=== PATIENT | male | born 1955 ===

== ENCOUNTER 2017-01-03 14:36 | Inpatient (IN) | payer MEDICARE ==
[~2017-01-03] VITALS: Ht 177.8 cm; Wt 74.6 kg
--- NOTE | ~2017-01-03 | PR ---
[place], [place] PROGRESS NOTE NAME: KLAUDIA GARCIA UNIT #: [id number] ROOM: 427 DOCTOR: PACO GALLAGHER DPM BIRTHDATE: [birth year] DOS: 01/06/2017 SUBJECTIVE: The patient is seen for postop day 1 of left foot. The patient is resting comfortably in bed without fever, chills or pain. OBJECTIVE: Upon removal of the dressing, the incision sites, plantar second left MPJ and dorsal left foot reveals no signs of purulent drainage or foul odor. The patient's WBC is down to 9.1. Wound culture reveals Staph aureus. No signs of proximal cellulitis. Negative Homans sign. No signs of DVT. No signs of complication. ASSESSMENT: Post-incision and drainage with bone biopsy, left foot. PLAN: A dry dressing was applied until the wound VAC can be applied. Ordered wound VAC to be changed every 3 days, applied to the dorsal and plantar left foot, set at 125 mmHg continuous. The patient will be seen on Sunday for followup with Dr. Fajardo and possible discharge. We will try and set up for wound VAC as soon as possible for home use. PACO GALLAGHER DPM CM:HARIKA [phone] PACO GALLAGHER DPM 01/10/17 0739 interface
--- NOTE | ~2017-01-03 | PR ---
[place], [place] PROGRESS NOTE NAME: KLAUDIA GARCIA UNIT #: [id number] ROOM: 427 DOCTOR: KLAUDIA MAYFIELD DPM BIRTHDATE: [birth year] DOS: 01/08/2017 SUBJECTIVE: This patient is seen postop day 3 of I and D, left foot. States he is feeling well. He has no fever, chills, nausea, vomiting or night sweats. OBJECTIVE: EXTREMITIES: Wound VAC is in place. Significant decrease in edema and erythema dorsally. No edema or erythema plantarly. Minimal drainage is noted at this time, wound culture revealed Staph aureus. Negative Homans sign is seen. ASSESSMENT: Status post incision and drainage, left foot with bone biopsies. PLAN: At this time is to get the patient home. It is okay from Podiatry standpoint to discharge. He will have a wound VAC at home. He will have oral antibiotics per Infectious Disease. He is to wear his Cam walker and be limited weightbearing on the left foot. He could follow up in the office on Sunday for evaluation. Call sooner if he has any other problems or concerns. KLAUDIA MAYFIELD DPM CM:HARIKA [phone] KLAUDIA MAYFIELD DPM 01/08/172139 interface
--- NOTE | ~2017-01-03 | PR ---
[place], [place] PROGRESS NOTE [id number] UN[facility] #: [id number] ROOM: 427 DOCTOR: PACO GALLAGHER DPM BIRTHDATE: [birth year] DOS: 01/04/2017 SUBJECTIVE: The patient presents after being admitted by Dr. Roberts yesterday. The patient states he feels much better today. He is not having fever or chills. OBJECTIVE: The patient's wound VAC is intact and functional, plantar aspect of the left foot. There are no signs of localized abscess to the area. Capillary refill time within normal limits. DIAGNOSTIC STUDIES: The patient had a CT scan performed of the left foot, which revealed postsurgical changes of the mid foot and medial column fusion. No acute fracture. No abscess seen. No appreciable abscess or apparent osteomyelitis. The patient's arterial vascular exam revealed no significant disease except for nonvisualization of the anterior tibial artery on the right. Left Doppler suggests possible significant disease in the distal popliteal, but 3 runoff vessels remain patent to the ankle. The patient's MRI is still pending. The patient's WBC has decreased to 16.1 today. ASSESSMENT: Diabetic foot infection, rule out osteomyelitis, chronic diabetic ulceration. PLAN: Evaluation and management. Continue antibiotics per Infectious Disease. Awaiting on results of the MRI. Discussed the case with Dr. Fajardo and Dr. Roberts. We will continue the wound VAC, possible bone biopsy if warranted depending on results of the MRI, which has not been done yet today. Dr. Fajardo will see the patient tomorrow. PACO GALLAGHER DPM CM:PNTRANS [id number] PACO GALLAGHER DPM 01/04/17 1228 interface
--- NOTE | ~2017-01-03 | O ---
[place], [place] OPERATIVE NOTE NAME: KLAUDIA GARCIA UNIT #: [id number] ROOM: 427 DOCTOR: KLAUDIA MAYFIELD DPM BIRTHDATE: [birth year] DOS: 01/05/2017 SURGEON: Klaudia Mayfield DPM PREOPERATIVE DIAGNOSIS: Infected diabetic ulcer with abscess and possible osteomyelitis, left foot. POSTOPERATIVE DIAGNOSIS: Infected diabetic ulcer with abscess and possible osteomyelitis, left foot. PROCEDURE: Incision and drainage of abscess, left forefoot with bone biopsy second metatarsal. ESTIMATED BLOOD LOSS: 5 mL. PATHOLOGY: Bone, left second metatarsal. ANESTHESIA: General MAC, injectable 10 mL of 0.5% Marcaine plain. COMPLICATIONS: None. DESCRIPTION OF PROCEDURE: After appropriate preoperative evaluation, patient brought in the OR and placed on the OR table in supine position. Anesthesia was then administered per anesthesia record. Next, a total of 10 mL of 0.5% Marcaine plain was injected proximal to the left second MPJ in a field block fashion. Once adequate anesthesia was obtained, the area was prepped and draped in usual sterile manner and left foot was lowered to the surgical field. Attention was directed to the plantar left second metatarsal head where there was noted to be an ulceration present. A Weikert elevator was used to probe the ulcer and that the wound did track distally towards the base of the second toe. This area was incised and there was encountered about 1 mL of purulence in the area. The ulcer then tracked dorsally at both the first and second intermetatarsal space more so the first intermetatarsal space. A Weikert was inserted towards the first intermetatarsal space and an incision was made dorsally in the dorsal to this area. There was found to be about 1-2 mL of purulence within the intermetatarsal space. Further probing of the wound was done and it did track to the second intermetatarsal space and a small incision was made dorsally there as well. No purulence was encountered in that area. The medial side of the second metatarsal head and periosteum was exposed. A Jamshidi needle was used to obtain a bone biopsy of the left second metatarsal head. Bone cultures were then done and will be sent for Gram stain culture and sensitivity, both aerobic and anaerobic. The area was then flushed with using a pulse supervisor gelatin plant with 3 liters of normal saline. Half inch plain Nu Gauze packing was applied to the wounds followed by 4 x 4s, ABD and Kerlix and Jemal wrap. Vascular status was intact to the foot throughout the procedure. The patient tolerated the procedure and anesthesia well and left the OR with vital signs stable and intact and transported to the recovery room. The patient will be followed up tomorrow, possibly resume wound VAC tomorrow. For now, we will leave the packing in until the morning. will see him tomorrow. [place], [place] OPERATIVE NOTE NAME: KLAUDIA GARCIA UNIT #: [id number] ROOM: 427 DOCTOR: KLAUDIA MAYFIELD DPM BIRTHDATE: [birth year] KLAUDIA MAYFIELD DPM CM:OPRECORD:OPERATIVE NOTE [phone] KLAUDIA MAYFIELD DPM 01/05/172000 interface
--- NOTE | ~2017-01-03 | CON ---
[place], [place] REPORT OF CONSULTATION NAME: [id number] UNIT #: [id number] ROOM: 427 DOCTOR: MELLY TYSON DPM BIRTHDATE: [birth year] DOS: 01/03/2017 The patient is a 61-year-old white male who is seeing me for bilateral Charcot foot deformities. I operated on him approximately 5-6 years ago. Subsequently, he was seen in our office today by one of my associates and diagnosed with diabetic foot ulcer with a possible abscess. He was admitted to [facility] and his white count is 20.5. He has a red, hot, swollen foot with a secondary diabetic ulcer sub-second metatarsal of his left foot. Today, he was seen at bedside. He has a white circular around the plantar aspect of the left foot. His vascular status appears to be intact, but slightly diminished on the left side, appears to be intact on the right. He had noninvasive vascular studies done, demonstrate he has a 3-vessel runoff; however, he does have a component of peripheral vascular disease on his left. He denies any chills, fever, shortness of breath, chest pain, leg pain at this moment. PAST MEDICAL HISTORY: In the chart; I do not have access to it right now. PHYSICAL EXAMINATION: Lower extremities: VASCULAR: He has got Doppler waveforms of the right that suggests no significant disease except for the nonvisualization of the anterior tibial artery. On the left, Doppler waveforms suggest possibly significant disease distal to the popliteal artery, but 3 runoff vessels remain patent to the ankle. He had a CT scan done and there are postsurgical changes from reconstruction. No acute fractures or hardware complications seen. However, I looked at his x-rays and there is some fractured hardware, but it appears to be stable in place. There is some prominent dorsal foot soft tissue swelling which may represent underlying cellulitis, but there is no abscess seen. On the CT, mild MTP plantar ulceration without underlying erosive changes or appreciable abscess, moderate hindfoot degenerative changes. NEUROLOGICAL: He has a lack of protective sensation secondary to his diabetes mellitus. MUSCULOSKELETAL: He has a mildly tight posterior muscle group. DERMATOLOGIC: He has an open wound approximately 1 cm diameter that is white, circular full thickness ulceration, travels deep to the deep capsular tissue. ORTHOPEDIC: Always concerned of osteomyelitis, but I do not believe he has osteomyelitis based on his x-rays and clinical exam at this time. ASSESSMENT: Abscess, infection of sub-second metatarsal, beginnings of a deep space infection possibly. PLAN: Waiting for MRI results tomorrow. In the meantime, we will order a wound VAC to his room and we will set it at 200 continuously. Deep aerobic, anaerobic, fungal and acid fast cultures will be taken. In the meantime, Infectious Disease started antibiotics on him and I will have my partner see him tomorrow. We will follow up accordingly. [place], [place] REPORT OF CONSULTATION NAME: KLAUDIA GARCIA UNIT #: [id number] ROOM: 427 DOCTOR: MELLY TYSON DPM BIRTHDATE: [birth year] MELLY TYSON DPM CM:CONSTR:REPORT OF CONSULTATION 20 01/04/17 0114 interface
--- NOTE | ~2017-01-03 | PR ---
[place], [place] PROGRESS NOTE [id number] UNIT #: [id number] ROOM: 427 DOCTOR: KLAUDIA MAYFIELD DPM BIRTHDATE: [birth year] DOS: 01/05/2017 SUBJECTIVE: This patient is seen for followup of his left foot. He states he is feeling better. He is not having any chills or fever, does not have any sweats. He had an MRI done that showed abscess in the left forefoot. OBJECTIVE: The wound VAC is removed. Neurovascular status is unchanged. There is neuropathy present. Arterial status is intact. Plantar left second metatarsal head has an ulceration present that probes down into and through subcutaneous tissue. Just distal to this, there is some erythema and some fluctuance noted. There is some drainage noted to the area. Mild edema dorsal forefoot with some erythema, but no fluctuance dorsally. Again his MRI showed an area of abscess measuring approximately 1.1 x 3.1 cm in the area around the plantar ulceration of the left forefoot. There was no evidence of osteomyelitis. ASSESSMENT: Diabetes with ulceration and abscess, left forefoot. EVALUATION AND MANAGEMENT: I discussed with the patient that there is an abscess in the left forefoot. He will need incision and drainage of the abscess today. He has been n.p.o. since 9:00 a.m. He is scheduled to have surgery at 3:00. I discussed the procedure with the patient as well as possible complications. I will pack the area after the surgery, may possibly reapply the wound VAC tomorrow. Consent will be done for incision and drainage of abscess and debridement of ulcer, left foot. The patient was given the opportunity to ask questions, all questions were answered. He will go to surgery later this afternoon and he will be followed up tomorrow. KLAUDIA MAYFIELD DPM CM:HARIKA 02 30 KLAUDIA MAYFIELD DPM 01/05/172231 interface
[2017-01-03 14:45] VITALS: BP 177/79
[2017-01-03 14:55] VITALS: BP 142/87
[2017-01-03 15:29] LABS: HEMATOCRIT 43.9 % (42.0-52.0); HEMOGLOBIN 15.1 g/dl (14.0-18.0); MEAN CELL VOLUME 86.4 fl (80.0-94.0); MEAN CORPUSCULAR HGB 29.7 pg (27.0-31.0); MEAN CORPUSCULAR HGB CONC 34.4 g/dl (33.0-37.0); MEAN PLATELET VOLUME 9.8 fl (9.6-12.3); PLATELET COUNT AUTOMATED 172 10*3/uL (130-400); RED BLOOD COUNT 5.08 10*6/uL (4.50-5.90); RED CELL DISTRI WIDTH 13.3 % (0-14.5); WHITE BLOOD COUNT 20.5 10*3/uL (4.8-10.8)
--- NOTE | 2017-01-03 15:41 | NUR ---
LA 3.2 Lady HANNAH NOTIFIED.
[2017-01-03 15:44] VITALS: BP 153/80
[2017-01-03 15:47] LABS: ALBUMIN 3.6 gm/dl (3.1-4.5); ALKALINE PHOSPHATASE 88 U/L (45-117); BUN 19 mg/dl (7-24); CHLORIDE 102 mmol/L (98-107); CREATININE 0.95 mg/dL (0.70-1.30); SGOT/AST 16 IU/L (3-35); SGPT/ALT 24 U/L (12-78); SODIUM 136 mmol/L (136-145); TOTAL PROTEIN 6.9 gm/dL (6.4-8.2)
[2017-01-03 15:48] LABS: ATYPICAL LYMPHS 5 % (0-0); PLATELET SUFFICIENCY NORMAL (NORMAL); TOTAL CELLS COUNTED 100 #CELLS
--- NOTE | 2017-01-03 16:59 | NUR ---
DR. HILL AND DR. TYSON NOTIFIED OF CONSULTS.
--- NOTE | 2017-01-03 17:33 | NUR ---
RADHA KAUFFMAN AT BEDSIDE WITH PATIENT AT THIS TIME.
--- NOTE | 2017-01-03 17:36 | NUR ---
PATIENT LEFT FOOT HAS BEEN WRAPPED FOR TRANSPORT. RADHA KAUFFMAN NOTIFIED.
--- NOTE | 2017-01-03 18:12 | NUR ---
MSADMTime: N A 61 year old MALE admitted to 4E under services of MON[place]NA SERRANO DO, Pt. arrived via from ER. Chief complaint: DIABETIC FOOT ULCER. RADHA BELCHER
[2017-01-03] MEDS ORDERED: GLUCOPHAGE1000 MG PO (18:30)
[2017-01-03] MEDS ORDERED: SIMVASTATIN20 MG PO (18:31)
[2017-01-03] MEDS ORDERED: CALAN120 M1 PO (18:31)
[2017-01-03] MEDS ORDERED: LISINOPRIL5 MG PO (18:31)
[2017-01-03] MEDS ORDERED: ASPIRIN CHEWABL81 MG PO (18:32)
[2017-01-03] MEDS ORDERED: GLYBURIDE5 MG PO (18:32)
[2017-01-03] MEDS ORDERED: LEVEMIR100 UNIT/1 SC (18:38)
[2017-01-03] MEDS ORDERED: AMBIEN10 M1 PO (18:39)
[2017-01-03 21:01] VITALS: BP 133/71
--- NOTE | 2017-01-03 22:02 | NUR ---
2ND GRAM OF VANC GIVEN. UNABLE TO DOCUMENT ON APR.
--- NOTE | 2017-01-03 23:10 | NUR ---
WOUND VAC APPLIED CHACORTA RASHID
--- NOTE | 2017-01-03 23:29 | NUR ---
PATIENT MEDICATED WITH AMBIEN PER PRN ORDER FOR C/O INABILITY TO SLEEP. SEE EMAR. REINFORCED USE OF CALL LIGHT,
[2017-01-04] VITALS: BP 135/72
--- NOTE | 2017-01-04 01:00 | NUR ---
PATIENT APPEARS TO BE SLEEPING. MEDICATION EFFECTIVE.
[2017-01-04 06:37] LABS: HEMOGLOBIN 13.9 g/dl (14.0-18.0); MEAN CORPUSCULAR HGB 29.5 pg (27.0-31.0); MEAN CORPUSCULAR HGB CONC 33.9 g/dl (33.0-37.0); MEAN PLATELET VOLUME 9.9 fl (9.6-12.3); PLATELET COUNT AUTOMATED 146 10*3/uL (130-400); RED BLOOD COUNT 4.71 10*6/uL (4.50-5.90); RED CELL DISTRI WIDTH 13.2 % (0-14.5); WHITE BLOOD COUNT 16.1 10*3/uL (4.8-10.8)
[2017-01-04 07:07] LABS: ALBUMIN 3.1 gm/dl (3.1-4.5); ALKALINE PHOSPHATASE 74 U/L (45-117); BUN 12 mg/dl (7-24); CHLORIDE 107 mmol/L (98-107); CHOLESTEROL 103 mg/dL (<200); FREE T4 1.31 ng/dl (0.76-1.46); HDL CHOLESTEROL 44 mg/dl (40-60); LDL CHOLESTEROL 48 mg/dL (9-159); PHOSPHOROUS 2.6 mg/dL (2.5-4.9); POTASSIUM 3.3 mmol/L (3.5-5.1); SGOT/AST 19 IU/L (3-35); SGPT/ALT 24 U/L (12-78); SODIUM 141 mmol/L (136-145); TOTAL PROTEIN 6.2 gm/dL (6.4-8.2); TRIGLYCERIDES 55 mg/dl (<150); VLDL CHOLESTEROL 11 mg/dL (6-40)
[2017-01-04 07:16] LABS: INTERNATIONAL NORM RATIO 1.1 (2.0-3.5)
[2017-01-04 07:38] LABS: PLATELET SUFFICIENCY NORMAL (NORMAL); TOTAL CELLS COUNTED 100 #CELLS
--- NOTE | 2017-01-04 07:45 | NUR ---
RAPID FLU SPECIMEN SENT TO LAB [facility]
--- NOTE | 2017-01-04 07:55 | NUR ---
Alert and oriented x3. Eating breakfast. Denies pain at this time. Wound vac intact to left foot. IVF infusing per orders. Lungs clear throughout. Abdomen soft normoactive x4. BM yesterday per pt. See assessment.
[2017-01-04 08:00] VITALS: BP 130/80
--- NOTE | 2017-01-04 08:00 | NUR ---
PATIENT IS PLEASANT AND COOPERATIVE SITTING UP IN BED [facility]
--- NOTE | 2017-01-04 08:53 | NUR ---
This nurse went into patient's room to evaluate left foot. Patient stated that this wound started about 5 weeks ago and follow with Dr. Garcia with podiatry for a DFU. Patient has a wound vac in place at 200 mmHg continous. Periwound red in color. Spoke with Jai to inform her that when podiatry rounds that the orders for the wound vac need clarified and if she can get them clarified she stated yes. Patient stated that he has been following with Dr. Garcia for several years regarding other issue that he has had previously.
--- NOTE | 2017-01-04 09:00 | NUR ---
[employer] Analyst in to talk to patient. Patient states lives at [facility] with . There are few steps in the home. Physician: out of state doctor Pharmacy: out of state Home health services: none Patient's level of ADLs: INDEPENDENT Patient has working utilities: all working DME: none Follow-up physician's appointment after d/c: will be made by hospitalist nurse director upon discharge Does patient want to access PORTAL?: no Discharge plan discussed with patient, patient states he lives at home with his , states he lives in [facility] and was here at the doctors appointment when the doctor sent him to the Ed. Discussed with him a discharge plan including giving himself iv antibiotics if needed, or a short term jail, patient stated he didn't want to go to a SNF and that he felt he could do the iv at home if needed. case management will follow and set up any needs patient may have. RAISA BARKER
[2017-01-04 09:03] LABS: VITAMIN D, 25-HYDROXY 24.7 ng/mL (30-100)
--- NOTE | 2017-01-04 10:00 | NUR ---
LEFT FOOT WARM TO TOUCH, PULSES FAINT BUT OBTAINED WITH DOPPLER, FOOT EDEMATOUS SO HAS SLIGHTLY PROLONGED CAP REFILL [facility] MUR[facility] SPNRCC
--- NOTE | 2017-01-04 10:32 | NUR ---
PATIENT AWAKE AND ORIENTED WITH NO COMPLAINTS AT THIS TIME HARLAN MURPHY SPALLYSONCC
[2017-01-04 12:00] VITALS: BP 106/68
--- NOTE | 2017-01-04 13:04 | NUR ---
STOOL FOR OCCULT BLOOD SENT TO LAB [facility]
--- NOTE | 2017-01-04 15:19 | NUR ---
Nutritional Support Services Note: Discussing with pt 1800cal diabetic diet. Pt states his is a diabetic also and they attempt to follow diet but do not do very well with it. He has been a diabetic for 15 years. Has some weight loss the last year or so. He goes for long periods without eating. Encouraged three meals daily and a night snack. Encouraged increased protein to promote healing. Will follow as needed. Meryl Mcfarland
[2017-01-04 16:00] VITALS: BP 106/66
--- NOTE | 2017-01-04 16:28 | NUR ---
Pt taken of monitor, ivf disconnected and wound vac machine disconnected from pt and clamped for transport to MRI.
--- NOTE | 2017-01-04 17:40 | NUR ---
Pt returned from having MRI, assembler latches and springs reapplied, ivf resumed, and wound vac tubing reattached to wound vac at 125 mm hg suction per order.
[2017-01-04 20:00] VITALS: BP 118/66
[2017-01-04 21:05] VITALS: BP 129/47
[2017-01-05] VITALS (9 sets, daily range): BP systolic 119–158; BP diastolic 55–81
[2017-01-05 06:09] LABS: BASO % 0.2 % (0.0-1.0); EOS # 0.3 10*3/uL (0.0-0.4); EOS % 1.9 % (1.0-4.0); HEMATOCRIT 40.4 % (42.0-52.0); HEMOGLOBIN 13.5 g/dl (14.0-18.0); LYMPH # 1.7 10*3/uL (1.3-4.4); MEAN CELL VOLUME 86.5 fl (80.0-94.0); MEAN CORPUSCULAR HGB 28.9 pg (27.0-31.0); MEAN CORPUSCULAR HGB CONC 33.4 g/dl (33.0-37.0); MEAN PLATELET VOLUME 9.8 fl (9.6-12.3); MONO # 1.1 10*3/uL (0.1-1.0); MONO % 7.9 % (3.0-9.0); NEUT # 10.2 10*3/uL (2.3-7.9); NEUT % 76.6 % (47.0-73.0); PLATELET COUNT AUTOMATED 150 10*3/uL (130-400); RED BLOOD COUNT 4.67 10*6/uL (4.50-5.90); RED CELL DISTRI WIDTH 13.1 % (0-14.5); WHITE BLOOD COUNT 13.3 10*3/uL (4.8-10.8)
[2017-01-05 06:13] LABS: BUN 10 mg/dl (7-24); CHLORIDE 106 mmol/L (98-107); POTASSIUM 3.3 mmol/L (3.5-5.1); SODIUM 140 mmol/L (136-145)
[2017-01-05 06:15] LABS: VANCOMYCIN TROUGH 12.6 ug/mL (10-20)
--- NOTE | 2017-01-05 09:00 | NUR ---
case management visits with patient, patient states he may be having surgery today, again discussed a discharge plan and VNA and patient stated that he didn't feel he needed any at this time, case managment will follow
--- NOTE | 2017-01-05 12:09 | NUR ---
SPOKE WITH WITH DR. RICARDO Cowan FOR PATIENT TO BE NPO FOR PROBABLE SURGERY
--- NOTE | 2017-01-05 14:21 | NUR ---
PATEINT TO SURGERY
[2017-01-05] MEDS ORDERED: CEPHALEXIN500 M1 PO (16:37)
[2017-01-05] MEDS ORDERED: DOXYCYCLINE100 M3 PO (16:37)
--- NOTE | 2017-01-05 21:30 | NUR ---
PATIENT MEDICATED WITH NORCO PER PRN ORDER FOR C/O LEFT FOOT PAIN. RATED PAIN A 5-6/10 WITH 10 BEING THE WORST. SEE EMAR. REINFORCED USE OF CALL LIGHT.
--- NOTE | 2017-01-05 23:24 | NUR ---
DR. SHOOK NOTIFIED OF THE FREQUENT PVC ON MONITOR STRIP.
--- NOTE | 2017-01-05 23:50 | NUR ---
DR. MUNOZ AND DR MUNIZ TO FLOOR. REVIEWED MONITOR STRIP. ORDERS RECEIVED
[2017-01-06] VITALS: BP 117/67
--- NOTE | 2017-01-06 01:35 | NUR ---
PATIENT MEDICATED WITH NORCO FOR C/O L. FOOT PAIN. RATED PAIN A 4/10 WITH 10 BEING THE WORST. SEE EMAR. REINFORCED USE OF CALL LIGHT.
[2017-01-06 06:21] LABS: BASO # 0.1 10*3/uL (0.0-0.1); BASO % 0.5 % (0.0-1.0); EOS # 0.3 10*3/uL (0.0-0.4); EOS % 3.2 % (1.0-4.0); HEMATOCRIT 38.3 % (42.0-52.0); HEMOGLOBIN 13.1 g/dl (14.0-18.0); LYMPH # 1.7 10*3/uL (1.3-4.4); LYMPH % 18.6 % (27.0-41.0); MEAN CELL VOLUME 86.1 fl (80.0-94.0); MEAN CORPUSCULAR HGB 29.4 pg (27.0-31.0); MEAN CORPUSCULAR HGB CONC 34.2 g/dl (33.0-37.0); MONO % 10.5 % (3.0-9.0); NEUT # 6.1 10*3/uL (2.3-7.9); NEUT % 66.8 % (47.0-73.0); PLATELET COUNT AUTOMATED 167 10*3/uL (130-400); RED BLOOD COUNT 4.45 10*6/uL (4.50-5.90); RED CELL DISTRI WIDTH 13.1 % (0-14.5); WHITE BLOOD COUNT 9.1 10*3/uL (4.8-10.8)
[2017-01-06 06:51] LABS: BUN 9 mg/dl (7-24); CHLORIDE 107 mmol/L (98-107); CREATININE 0.67 mg/dL (0.70-1.30); PHOSPHOROUS 3.6 mg/dL (2.5-4.9); POTASSIUM 3.9 mmol/L (3.5-5.1); SODIUM 141 mmol/L (136-145)
[2017-01-06 08:00] VITALS: BP 150/88
[2017-01-06 11:50] VITALS: BP 127/77
--- NOTE | 2017-01-06 12:00 | NUR ---
ASSESSMENT COMPLETE. PT HAS DRESSING TO LEFT FOOT, PHYSICIAN CHANGED ORIGINAL SURGICAL DRESSING AND APPLIED NEW DRY DRESSING. ORDER FOR WOUND VAC TO BE PLACED. WILL PLACE ON PATIENT WHEN RN THAT HAS WOUND VAC EXPERIENCE IS ABLE TO ASSIST PLACEMENT. PT AWARE OF PLAN. PT HAS NO COMPLANTS OF PAIN AT THIS TIME.
--- NOTE | 2017-01-06 15:37 | NUR ---
WOUND VAC PLACED ON LEFT FOOT DORSAL AND PLANTAR SURFACES. WOUND VAC PLACED WITH ASSISTANCE FROM CAROLYN WHITLEY RN. SUCTION AT 125CMHG. WOUND PICTURES TAKEN. SEE WOUND SCREEN
[2017-01-06 16:00] VITALS: BP 141/80
[2017-01-06 20:00] VITALS: BP 147/72
[2017-01-07] VITALS: BP 123/66
--- NOTE | 2017-01-07 00:58 | NUR ---
AMBIEN GIVEN AT 0056 PER PATIENT REQUEST TO HELP HIM SLEEP, GIVEN PER PRN ORDER.
--- NOTE | 2017-01-07 02:00 | NUR ---
PATIENT LYING IN BED WITH EYES CLOSED, APPEARS TO BE SLEEPING.
--- NOTE | 2017-01-07 02:26 | NUR ---
PATIENT WITH WOUND VAC INTACT ON LEFT FOOT. TOLERATED WELL. DRESSING HAD TO BE FIXED SEVERAL TIMES. PATIENT UP WALKING TO THE BATHROOM.
--- NOTE | 2017-01-07 04:28 | NUR ---
24 HR chart check completed.
[2017-01-07 06:02] LABS: BASO % 0.3 % (0.0-1.0); EOS # 0.4 10*3/uL (0.0-0.4); EOS % 4.8 % (1.0-4.0); HEMATOCRIT 38.9 % (42.0-52.0); LYMPH # 1.6 10*3/uL (1.3-4.4); LYMPH % 21.8 % (27.0-41.0); MEAN CELL VOLUME 86.3 fl (80.0-94.0); MEAN CORPUSCULAR HGB 28.8 pg (27.0-31.0); MEAN CORPUSCULAR HGB CONC 33.4 g/dl (33.0-37.0); MONO # 0.8 10*3/uL (0.1-1.0); MONO % 11.5 % (3.0-9.0); NEUT # 4.5 10*3/uL (2.3-7.9); NEUT % 61.3 % (47.0-73.0); PLATELET COUNT AUTOMATED 175 10*3/uL (130-400); RED BLOOD COUNT 4.51 10*6/uL (4.50-5.90); WHITE BLOOD COUNT 7.3 10*3/uL (4.8-10.8)
[2017-01-07 06:12] LABS: BUN 10 mg/dl (7-24); CHLORIDE 108 mmol/L (98-107); CREATININE 0.65 mg/dL (0.70-1.30); POTASSIUM 4.3 mmol/L (3.5-5.1); SODIUM 144 mmol/L (136-145)
[2017-01-07 06:21] LABS: VANCOMYCIN TROUGH 24.9 ug/mL (10-20)
--- NOTE | 2017-01-07 07:58 | NUR ---
DR. PIZARRO WAS NOTIFIED OF CRITICAL VANCOMYCIN TROUGH AT 24.9.
[2017-01-07 08:00] VITALS: BP 137/67
[2017-01-07 12:00] VITALS: BP 134/77
[2017-01-07 16:00] VITALS: BP 157/82
[2017-01-07 20:00] VITALS: BP 161/79
--- NOTE | 2017-01-07 22:55 | NUR ---
PATIENT REQUESTED AMBIEN TO HELP HIM SLEEP. AMBIEN GIVEN PER PRN ORDER.
--- NOTE | 2017-01-07 23:00 | NUR ---
PATIENT LYING IN BED ASLEEP. AMBIEN APPEARS TO BE EFFECTIVE.
[2017-01-08] VITALS: BP 143/64
[2017-01-08 07:28] LABS: BASO % 0.5 % (0.0-1.0); EOS # 0.3 10*3/uL (0.0-0.4); EOS % 3.8 % (1.0-4.0); HEMATOCRIT 40.5 % (42.0-52.0); HEMOGLOBIN 13.7 g/dl (14.0-18.0); LYMPH # 1.5 10*3/uL (1.3-4.4); LYMPH % 18.1 % (27.0-41.0); MEAN CELL VOLUME 85.8 fl (80.0-94.0); MEAN CORPUSCULAR HGB CONC 33.8 g/dl (33.0-37.0); MEAN PLATELET VOLUME 10.1 fl (9.6-12.3); MONO # 0.7 10*3/uL (0.1-1.0); MONO % 8.9 % (3.0-9.0); NEUT # 5.7 10*3/uL (2.3-7.9); NEUT % 68.3 % (47.0-73.0); PLATELET COUNT AUTOMATED 201 10*3/uL (130-400); RED BLOOD COUNT 4.72 10*6/uL (4.50-5.90); RED CELL DISTRI WIDTH 12.8 % (0-14.5); WHITE BLOOD COUNT 8.3 10*3/uL (4.8-10.8)
[2017-01-08 07:41] LABS: BUN 12 mg/dl (7-24); CHLORIDE 106 mmol/L (98-107); CREATININE 0.72 mg/dL (0.70-1.30); POTASSIUM 3.9 mmol/L (3.5-5.1); SODIUM 142 mmol/L (136-145)
[2017-01-08 08:00] VITALS: BP 155/79
--- NOTE | 2017-01-08 09:00 | NUR ---
case management visits with patient, again discussed with him a discharge plan, patient stated that he would be going home on oral antibiotics and a wound vac, per chart, podiatry is working on the wound vac, discussed with patient NORRIS and he was receptive to this, patient stated he didn't care what company he had. 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
[2017-01-08 12:00] VITALS: BP 139/72
--- NOTE | 2017-01-08 12:06 | NUR ---
DR. MAYFIELD HAS CLEARED THE PATIENT FOR DC. THE DR. UGALDE STATE THAT THE PATIENT WILL NEED A WOUND VAC FOR HOME AND TO FOLLOW UP WITH [facility] ON SUNDAY.
[2017-01-08] MEDS ORDERED: LISINOPRIL10 M1 PO (12:56)
--- NOTE | 2017-01-08 13:08 | NUR ---
Received order for home health, patient from [facility] , referral faxed to [facility] home health.
--- NOTE | 2017-01-08 14:30 | NUR ---
PATIENT GOING HOME WITH WET TO DRY DRESSING PER DR. MAYFIELD UNTIL HE RECIEVES IS WOUND VAC FROM DR. MAYFIELD'S OFFICE. WOUND PICTURES WERE TAKEN. NO COMPLAINTS FROM THE PATIENT. NO CONCERNS AT THIS TIME.
--- NOTE | 2017-01-08 14:42 | NUR ---
Notified [facility] home health patient is being discharged to home today and faxed discharge information.
--- NOTE | 2017-01-08 14:52 | NUR ---
Discharge instructions reviewed with patient/family. Patient receptive and verbalizes understanding. Follow-up care arranged. Written instructions given to patient/family. ROYER GASTELUM
== END 2017-01-08 14:52 | disposition home health service (06) | DRG 854 ==
LOC: ED 14:36 → 4E 16:14 → EDHOLD 16:14 → 5E 16:37 → 4E 16:42
PROVIDERS: Hospitalist; Nurse Practitioner Family; Podiatrist; ADMIT Internal Medicine
PROC: 0QBP0ZX Excision of Left Metatarsal, Open Approach, Diagnostic (ICD-10-PCS; principal; 2017-01-05)
PROC: 0Y9N0ZX Drainage of Left Foot, Open Approach, Diagnostic (ICD-10-PCS; 2017-01-05)
DX: A41.9 Sepsis, unspecified organism (principal); M86.8X7 Other osteomyelitis, ankle and foot; E11.621 Type 2 diabetes mellitus with foot ulcer; L02.612 Cutaneous abscess of left foot; R65.20 Severe sepsis without septic shock; L97.529 Non-pressure chronic ulcer of other part of left foot with unspecified severity; R00.0 Tachycardia, unspecified; E11.65 Type 2 diabetes mellitus with hyperglycemia; Z79.4 Long term (current) use of insulin; I10 Essential (primary) hypertension; E80.6 Other disorders of bilirubin metabolism; E87.6 Hypokalemia; E66.01 Morbid (severe) obesity due to excess calories; E11.69 Type 2 diabetes mellitus with other specified complication; F17.290 Nicotine dependence, other tobacco product, uncomplicated; Z71.6 Tobacco abuse counseling; Z86.14 Personal history of Methicillin resistant Staphylococcus aureus infection; Z79.899 Other long term (current) drug therapy; Z80.8 Family history of malignant neoplasm of other organs or systems; Z68.23 Body mass index [BMI] 23.0-23.9, adult

== ENCOUNTER 2017-04-13 11:39 | Inpatient (IN) | payer MEDICARE ==
[2017-04-13] VITALS (8 sets, daily range): BP systolic 109–132; BP diastolic 67–83
[~2017-04-13] VITALS: Ht 185.4 cm; Wt 101.2 kg
--- NOTE | ~2017-04-13 | PR ---
[place], [place] PROGRESS NOTE NAME: KLAUDIA GARCIA UNIT #: [id number] ROOM: 512 DOCTOR: KLAUDIA MAYFIELD DPM BIRTHDATE: [birth year] DOS: 04/16/2017 SUBJECTIVE: This patient is seen 3 days status post amputation of left second toe and debridement of wound, left foot. He states he is feeling well. He had a wound VAC placed yesterday. He states he feels better than prior to admission when he was having chills and fever. He has had none of the symptoms at this point. OBJECTIVE: Neurovascular status unchanged to neuropathy noted. The wound VAC is in place on the left foot. There is some mild drainage in the canister. There is no significant erythema noted dorsally. The patient is neuropathic, so as no pain. Overall, appears to be progressing well at this time. ASSESSMENT: Status post amputation, left second toe bone debridement, left foot. PLAN: Continue with the wound VAC for now. I discussed with the patient as well as nurse that it is okay from our standpoint for him to be discharged. If he gets a PICC line tomorrow and goes home, they could just pack the wound with a dry dressing and he could follow up in our office on Sunday for application of a wound VAC. I will discuss with my office this treatment plan. If he is still here on Sunday, we will see him, but if not, he is okay for discharge from our standpoint once okay with Internal Medicine and ID. KLAUDIA MAYFIELD DPM CM:PNTRANS [phone] KLAUDIA MAYFIELD DPM 04/16/17 7371 interface
--- NOTE | ~2017-04-13 | PR ---
[place], [place] PROGRESS NOTE [id number] UN[facility] #: [id number] ROOM: 512 DOCTOR: PACO GALLAGHER DPM BIRTHDATE: [birth year] DOS: 04/14/2017 SUBJECTIVE: The patient presents postop day 1 of bone debridement and biopsy of second metatarsal, incision and drainage with amputation of the second left toe. The patient is resting comfortably in bed without discomfort. OBJECTIVE: Upon removal of the dressing and packing, there are no signs of purulent drainage or foul odor. No further signs of abscess, no necrotic tissue evident. Appears to be healing well at this time postoperatively. ASSESSMENT: Postop amputation of second left toe, incision and drainage with bone biopsy. PLAN: Change the patient's dressing and packing. Half inch plain packing with wet to dry dressing was applied. Dr. Nicole will see the patient tomorrow and antibiotics per Infectious Disease. PACO GALLAGHER DPM CM:PNTRANS [phone] PACO GALLAGHER DPM 04/14/17 1233 interface
--- NOTE | ~2017-04-13 | O ---
[place], [place] OPERATIVE NOTE NAME: KLAUDIA GARCIA UNIT #: [id number] ROOM: 512 DOCTOR: NII NICOLE DPM BIRTHDATE: [birth year] DOS: 04/13/2017 HISTORY AND PHYSICAL: VASCULAR: DP and PT pulses palpable, +1/4 to bilateral feet. Capillary refill time less than 5 seconds to the digits of bilateral feet. Skin temperature, warm to warm from proximal to distal to bilateral lower extremities. NEUROVASCULAR: Protective sensation is diminished to the level of the heel as tested with 5.07 [place]ri[place] monofilament wires to bilateral feet. DERMATOLOGICAL: Ulceration noted to the left forefoot measuring approximately 1 cm x 1.5 cm x 0.5 cm deep. Wound base is fibrotic. The wound does probe to bone. Serosanguineous drainage is noted. No malodor is noted. MUSCULOSKELETAL: Ankle joint range of motion noted to be reduced in dorsiflexion with the knee extended to bilateral lower extremities. Gastrocnemius equinus is noted to bilateral lower extremities. SURGEON: Nii Nicole DPM ASSISTANTS: None. PREOPERATIVE DIAGNOSES: 1. Osteomyelitis of left second digit and left foot. 2. Soft tissue emphysema and infection with abscess, left foot. POSTOPERATIVE DIAGNOSES: 1. Osteomyelitis of left second digit and left foot. 2. Soft tissue emphysema and infection with abscess, left foot. PROCEDURE: 1. Bone debridement and biopsy of second metatarsal, left foot. 2. Incision and drainage of soft tissue infection and abscess, left foot. 3. Amputation of left second digit. ANESTHESIA: Local with IV sedation. HEMOSTASIS: None. ESTIMATED BLOOD LOSS: 10 mL. MATERIALS: None. IMPLANTS: None. COMPLICATIONS: None. DESCRIPTION OF PROCEDURE: The patient was admitted to the hospital from the Emergency Department for a left foot infection. The patient was met at the hospital room where consent was obtained. I discussed the possible risks and [place], [place] OPERATIVE NOTE NAME: KLAUDIA GARCIA Jose UNIT #: [id number] ROOM: 512 DOCTOR: NII NICOLE DPM BIRTHDATE: [birth year] benefits of surgery in detail with the patient and his family. All questions were answered. No guarantees were given. The patient was then brought to the preoperative holding area. The patient was taken from the preoperative holding area to the operating room and placed on the operating table in the supine position. IV anesthesia was administered per the anesthesiologist. Next, the left lower extremity was prepped and draped in the usual sterile fashion. At this time, attention was directed to the left foot where there was noted to be a plantar forefoot ulcer as per the note above. The wound was noted to track distally and there was noted to be serosanguineous drainage. Next, using a #15 blade, an incision was made along the distal aspect of the ulceration towards the digit. At this time, there was noted to be probing to the proximal phalanx of the second digit. Upon exam, there was noted to be soft bone and drainage noted along the proximal and distal phalanges of the second digit. The bone had an abnormal appearance and appeared necrotic. At this time, using a 15 blade, a circumferential incision was made overlying the second PIPJ. The digit was then amputated, removed from the field and passed to the back table to be sent for pathology. At this time, the tissue around the second metatarsal head was examined. The second metatarsal head was palpated and found to be of hard quality and normal appearance. The bone had no osseous soft spots and no abnormal appearance, otherwise, detectable. There was no tracking of the wound proximally on the plantar aspect or the dorsal aspect. Healthy bleeding tissue was noted around the remainder of the wound. Next, culture and pathology was taken of soft tissue and bone around the surrounding tissue and a bone biopsy was performed of the second metatarsal. Soft tissue and bone was then sent from the back table for pathology and culture. At this time, pulse lavage was used with 3 liters of normal saline solution. Following lavage, it was noted that the remainder of the tissue was healthy, bleeding and had a normal appearance. Following this, quarter inch iodoform gauze was placed plantarly into the wound and dorsally along the course of the incision. Retention sutures were then placed using 3-0 Prolene in a simple interrupted suturing fashion. At this time, the remainder of the soft tissue was noted to be healthy and viable. The incision site was then dressed using Betadine soaked 4 x 4 gauze, dry 4 x 4 gauze, Kerlix and an Jemal bandage in a mildly compressive dressing. Vital signs were stable and vascular status was maintained throughout the case and it was noted to be intact at the end of the case. Capillary refill time was brisk to the remainder of the digits of the left foot. The patient was awoken from anesthesia by the anesthesiologist and he was returned to the postoperative area. The patient will be returned to the floor under the care of the primary care physician. The patient will be continued on IV antibiotics until Infectious Disease consultation is obtained and recommendations will follow. The patient will be followed up within the hospital tomorrow. [place], [place] OPERATIVE NOTE NAME: KLAUDIA GARCIA UNIT #: [id number] ROOM: [facility] DOCTOR: NII NICOLE DPM BIRTHDATE: [birth year] NII NICOLE DPM CM:OPRECORD:OPERATIVE NOTE 1909 23 NII NICOLE DPM 04/13/172021 interface
[~2017-04-13 11:39] MED LIST: AMBIEN10 M1 PO; ASPIRIN CHEWABL81 MG PO; CALAN120 M1 PO; CEPHALEXIN500 M1 PO; DOXYCYCLINE100 M3 PO; GLUCOPHAGE1000 MG PO; GLYBURIDE5 MG PO; LEVEMIR100 UNIT/1 SC; LISINOPRIL10 M1 PO; LISINOPRIL5 MG PO; SIMVASTATIN20 MG PO
[2017-04-13] MEDS ORDERED: NEURONTIN300 MG PO (12:00)
[2017-04-13 12:38] LABS: BASO % 0.4 % (0.0-1.0); EOS # 0.1 10*3/uL (0.0-0.4); EOS % 1.5 % (1.0-4.0); HEMATOCRIT 46.7 % (42.0-52.0); HEMOGLOBIN 15.8 g/dl (14.0-18.0); LYMPH # 1.5 10*3/uL (1.3-4.4); LYMPH % 16.9 % (27.0-41.0); MEAN CELL VOLUME 84.3 fl (80.0-94.0); MEAN CORPUSCULAR HGB 28.5 pg (27.0-31.0); MEAN CORPUSCULAR HGB CONC 33.8 g/dl (33.0-37.0); MEAN PLATELET VOLUME 9.7 fl (9.6-12.3); MONO # 0.9 10*3/uL (0.1-1.0); MONO % 9.6 % (3.0-9.0); NEUT # 6.5 10*3/uL (2.3-7.9); NEUT % 71.2 % (47.0-73.0); PLATELET COUNT AUTOMATED 230 10*3/uL (130-400); RED BLOOD COUNT 5.54 10*6/uL (4.50-5.90); RED CELL DISTRI WIDTH 12.7 % (0-14.5); WHITE BLOOD COUNT 9.1 10*3/uL (4.8-10.8)
[2017-04-13 12:49] LABS: ACT PARTIAL THROMBO TIME 25.6 SECONDS (20.8-31.5)
[2017-04-13 12:52] LABS: ALBUMIN 3.3 gm/dl (3.1-4.5); ALKALINE PHOSPHATASE 101 U/L (45-117); BUN 15 mg/dl (7-24); CHLORIDE 99 mmol/L (98-107); CREATININE 0.79 mg/dL (0.70-1.30); POTASSIUM 3.8 mmol/L (3.5-5.1); SGOT/AST 23 IU/L (3-35); SGPT/ALT 35 U/L (12-78); SODIUM 136 mmol/L (136-145); TOTAL PROTEIN 7.8 gm/dL (6.4-8.2)
[2017-04-13] MEDS ORDERED: MULTIVITAMINS1 EAC5 PO (15:08)
[2017-04-14] VITALS: BP 116/70
[2017-04-14 06:12] LABS: BASO % 0.5 % (0.0-1.0); EOS # 0.2 10*3/uL (0.0-0.4); EOS % 2.8 % (1.0-4.0); LYMPH # 1.7 10*3/uL (1.3-4.4); LYMPH % 20.7 % (27.0-41.0); MEAN CORPUSCULAR HGB 29.5 pg (27.0-31.0); MEAN CORPUSCULAR HGB CONC 34.3 g/dl (33.0-37.0); MEAN PLATELET VOLUME 9.2 fl (9.6-12.3); MONO # 0.8 10*3/uL (0.1-1.0); MONO % 10.5 % (3.0-9.0); NEUT # 5.2 10*3/uL (2.3-7.9); PLATELET COUNT AUTOMATED 194 10*3/uL (130-400); RED BLOOD COUNT 4.58 10*6/uL (4.50-5.90); RED CELL DISTRI WIDTH 12.7 % (0-14.5)
[2017-04-14 06:13] LABS: HEMATOCRIT 39.4 % (42.0-52.0); HEMOGLOBIN 13.5 g/dl (14.0-18.0)
[2017-04-14 06:35] LABS: ACT PARTIAL THROMBO TIME 25.7 SECONDS (20.8-31.5); CHLORIDE 106 mmol/L (98-107); POTASSIUM 3.7 mmol/L (3.5-5.1); SODIUM 140 mmol/L (136-145)
[2017-04-14 06:58] LABS: ALBUMIN 2.6 gm/dl (3.1-4.5); ALKALINE PHOSPHATASE 77 U/L (45-117); BUN 12 mg/dl (7-24); CREATININE 0.63 mg/dL (0.70-1.30); PHOSPHOROUS 3.8 mg/dL (2.5-4.9); SGOT/AST 18 IU/L (3-35); SGPT/ALT 26 U/L (12-78); TOTAL PROTEIN 6.2 gm/dL (6.4-8.2)
[2017-04-14 08:00] VITALS: BP 118/75
[2017-04-14 12:00] VITALS: BP 119/73
[2017-04-14 16:00] VITALS: BP 138/75
[2017-04-14 20:00] VITALS: BP 118/69
[2017-04-15] VITALS: BP 131/71
[2017-04-15 07:03] LABS: BASO % 0.6 % (0.0-1.0); EOS # 0.2 10*3/uL (0.0-0.4); EOS % 3.4 % (1.0-4.0); HEMATOCRIT 38.5 % (42.0-52.0); HEMOGLOBIN 13.2 g/dl (14.0-18.0); LYMPH # 1.6 10*3/uL (1.3-4.4); LYMPH % 23.1 % (27.0-41.0); MEAN CELL VOLUME 86.3 fl (80.0-94.0); MEAN CORPUSCULAR HGB 29.6 pg (27.0-31.0); MEAN CORPUSCULAR HGB CONC 34.3 g/dl (33.0-37.0); MEAN PLATELET VOLUME 9.5 fl (9.6-12.3); MONO # 0.7 10*3/uL (0.1-1.0); MONO % 10.4 % (3.0-9.0); NEUT # 4.2 10*3/uL (2.3-7.9); NEUT % 62.2 % (47.0-73.0); PLATELET COUNT AUTOMATED 214 10*3/uL (130-400); RED BLOOD COUNT 4.46 10*6/uL (4.50-5.90); RED CELL DISTRI WIDTH 12.7 % (0-14.5); WHITE BLOOD COUNT 6.8 10*3/uL (4.8-10.8)
[2017-04-15 07:12] LABS: ALBUMIN 2.5 gm/dl (3.1-4.5); ALKALINE PHOSPHATASE 71 U/L (45-117); BUN 10 mg/dl (7-24); CHLORIDE 109 mmol/L (98-107); CREATININE 0.64 mg/dL (0.70-1.30); PHOSPHOROUS 3.2 mg/dL (2.5-4.9); POTASSIUM 3.5 mmol/L (3.5-5.1); SGOT/AST 14 IU/L (3-35); SGPT/ALT 24 U/L (12-78); SODIUM 143 mmol/L (136-145); TOTAL PROTEIN 5.9 gm/dL (6.4-8.2)
[2017-04-15 08:00] VITALS: BP 150/88
[2017-04-15 12:00] VITALS: BP 126/72
[2017-04-15 16:00] VITALS: BP 138/75
[2017-04-15 20:00] VITALS: BP 141/78
[2017-04-16 00:19] VITALS: BP 143/79
[2017-04-16 06:57] LABS: BUN 12 mg/dl (7-24); CHLORIDE 109 mmol/L (98-107); CREATININE 0.83 mg/dL (0.70-1.30); POTASSIUM 3.4 mmol/L (3.5-5.1); SODIUM 144 mmol/L (136-145)
[2017-04-16 08:00] VITALS: BP 134/69
[2017-04-16 12:00] VITALS: BP 145/77
[2017-04-16 16:00] VITALS: BP 155/80
[2017-04-16 20:00] VITALS: BP 148/77
[2017-04-17] VITALS: BP 119/62
[2017-04-17 06:50] VITALS: BP 142/78
[2017-04-17 06:52] LABS: BASO # 0.1 10*3/uL (0.0-0.1); BASO % 0.5 % (0.0-1.0); EOS # 0.3 10*3/uL (0.0-0.4); EOS % 2.9 % (1.0-4.0); LYMPH # 1.6 10*3/uL (1.3-4.4); MEAN CORPUSCULAR HGB 29.4 pg (27.0-31.0); MEAN CORPUSCULAR HGB CONC 34.1 g/dl (33.0-37.0); MEAN PLATELET VOLUME 9.2 fl (9.6-12.3); MONO # 0.7 10*3/uL (0.1-1.0); MONO % 7.2 % (3.0-9.0); NEUT # 7.1 10*3/uL (2.3-7.9); NEUT % 72.9 % (47.0-73.0); PLATELET COUNT AUTOMATED 233 10*3/uL (130-400); RED BLOOD COUNT 4.77 10*6/uL (4.50-5.90); RED CELL DISTRI WIDTH 12.5 % (0-14.5); WHITE BLOOD COUNT 9.8 10*3/uL (4.8-10.8)
[2017-04-17 07:10] LABS: ALBUMIN 2.9 gm/dl (3.1-4.5); BUN 11 mg/dl (7-24); CHLORIDE 106 mmol/L (98-107); CREATININE 0.73 mg/dL (0.70-1.30); POTASSIUM 4.1 mmol/L (3.5-5.1); SGOT/AST 28 IU/L (3-35); SGPT/ALT 36 U/L (12-78); SODIUM 142 mmol/L (136-145)
[2017-04-17 07:11] LABS: ALKALINE PHOSPHATASE 79 U/L (45-117); TOTAL PROTEIN 6.6 gm/dL (6.4-8.2)
[2017-04-17 12:00] VITALS: BP 141/80
== END 2017-04-17 16:30 | disposition home or self-care (01) | DRG 616 ==
LOC: ED 11:39 → EDHOLD 12:36 → 5E 12:36
PROVIDERS: Family Medicine; Internal Medicine; Nurse Practitioner Family
PROC: 0Y6S0Z1 Detachment at Left 2nd Toe, High, Open Approach (ICD-10-PCS; principal; 2017-04-13)
PROC: 0QBP0ZX Excision of Left Metatarsal, Open Approach, Diagnostic (ICD-10-PCS; 2017-04-13)
PROC: 0JBP0ZX Excision of Left Lower Leg Subcutaneous Tissue and Fascia, Open Approach, Diagnostic (ICD-10-PCS; 2017-04-13)
PROC: 02HV33Z Insertion of Infusion Device into Superior Vena Cava, Percutaneous Approach (ICD-10-PCS; 2017-04-17)
DX: E11.69 Type 2 diabetes mellitus with other specified complication (principal); E43 Unspecified severe protein-calorie malnutrition; E11.51 Type 2 diabetes mellitus with diabetic peripheral angiopathy without gangrene; M86.172 Other acute osteomyelitis, left ankle and foot; L02.612 Cutaneous abscess of left foot; E11.621 Type 2 diabetes mellitus with foot ulcer; E11.65 Type 2 diabetes mellitus with hyperglycemia; E11.42 Type 2 diabetes mellitus with diabetic polyneuropathy; L97.529 Non-pressure chronic ulcer of other part of left foot with unspecified severity; E11.610 Type 2 diabetes mellitus with diabetic neuropathic arthropathy; R79.82 Elevated C-reactive protein (CRP); R70.0 Elevated erythrocyte sedimentation rate; E83.41 Hypermagnesemia; E78.5 Hyperlipidemia, unspecified; A49.01 Methicillin susceptible Staphylococcus aureus infection, unspecified site; I10 Essential (primary) hypertension; E66.01 Morbid (severe) obesity due to excess calories; Z80.8 Family history of malignant neoplasm of other organs or systems; Z71.6 Tobacco abuse counseling; Z79.4 Long term (current) use of insulin; Z72.0 Tobacco use; Z79.899 Other long term (current) drug therapy; Z79.82 Long term (current) use of aspirin; Z68.29 Body mass index [BMI] 29.0-29.9, adult